=== PATIENT | male | born 1960 | race Caucasian/White ===

== ENCOUNTER → 2016-09-08 | Outpatient (CLI) | payer OTHER ==
[~2016-09-08] MED LIST: LEVE500T53 PO; LISI-167 PO; MULT-658 PO; TRAM50TA2 PO; WARF7.5T6 PO; ZALE5CAP PO
== END | disposition home or self-care (01) ==
LOC: CFH 14:56
PROVIDERS: ATTEND Family Medicine
DX: R07.81 Pleurodynia (principal); W08.XXXA Fall from other furniture, initial encounter

== ENCOUNTER 2018-10-18 12:34 | Outpatient (CLI) | payer MEDICARE ==
[~2018-10-18 12:34] MED LIST changes: +ATOR10TA PO; +FOLI-17 PO; +LACT20SO13 PO; +MULT1TAB60 PO; +THIA100T67 PO; +WARF5TAB PO; +WARF7.5T46 PO; -WARF7.5T6 PO
== END 2018-10-18 23:59 | disposition home or self-care (01) ==
LOC: CVU 12:34
PROVIDERS: ATTEND Family Medicine
DX: I82.513 Chronic embolism and thrombosis of femoral vein, bilateral (principal); I82.532 Chronic embolism and thrombosis of left popliteal vein; I10 Essential (primary) hypertension
CPT/HCPCS: 93970

== ENCOUNTER → 2019-08-05 | Outpatient (CLI) | payer MEDICARE ==
[~2019-08-05] MED LIST changes: +MULT-449 PO; -MULT1TAB60 PO; +OMNIPAQUE 350 MG/ML, 150 ML BOTTLE ONE; -WARF5TAB PO; +WARF5TAB2 PO
== END | disposition home or self-care (01) ==
LOC: CFH 13:55
PROVIDERS: ATTEND Surgery
DX: K57.30 Diverticulosis of large intestine without perforation or abscess without bleeding (principal); I82.423 Acute embolism and thrombosis of iliac vein, bilateral; N28.1 Cyst of kidney, acquired; M48.56XA Collapsed vertebra, not elsewhere classified, lumbar region, initial encounter for fracture; I87.1 Compression of vein; M51.37 Other intervertebral disc degeneration, lumbosacral region
CPT/HCPCS: 74177; 82565; Q9967